=== PATIENT | male | born 1950 | race Caucasian/White ===

== ENCOUNTER 2020-10-01 | Outpatient (CLI) | payer MEDICARE, OTHER | END 2020-10-01 21:52 | disposition EMS.NT | DX: R41.82 Altered mental status, unspecified (principal) ==

== ENCOUNTER 2022-05-17 08:00 | Outpatient (CLI) | payer MEDICARE, OTHER ==
--- NOTE | 2022-05-17 12:46 | XRAY Report ---
PROCEDURE: Hand 3 View RT INDICATIONS: RIGHT 5TH MC FX TECHNIQUE: 3 views of the hand(s) acquired. COMPARISON: 05/10/2022 FINDINGS: Bones: Evaluation is limited by positioning. Moderately displaced fifth metacarpal shaft fracture is similar to prior. No significant callus formation or reduction is apparent. Advanced degenerative changes of the proximal thumb and STT joint, partially seen. Soft tissues: No suspicious soft tissue calcifications. IMPRESSION: Compared to 05/10/2022, similar appearance of fifth metacarpal moderately displaced shaft fracture. Reviewed by: Romeo Singleton MD on 05/17/2022 12:44 PM PDT Approved by: Romeo Singleton MD on 05/17/2022 12:44 PM PDT Station ID: [id number]
== END 2022-05-17 23:59 | disposition home or self-care (01) ==
LOC: DI.WOS 08:00
PROVIDERS: ATTEND Orthopaedic Surgery
DX: S62.326A Displaced fracture of shaft of fifth metacarpal bone, right hand, initial encounter for closed fracture (principal); M19.041 Primary osteoarthritis, right hand

== ENCOUNTER 2022-05-20 11:22 | Day surgery (SDC) | payer MEDICARE, OTHER ==
[2022-05-20] MEDS ORDERED: LACTATED RINGERS 1,000 ML IV ONE ×2 (11:25→14:22)
[2022-05-20] MEDS ORDERED: CELECOXIB 100 MG CAPSULE PO ONE (11:31)
[2022-05-20] MEDS ORDERED: CEFAZOLIN 2G/50ML 0.9% NS 2 GM/50 ML BAG IV ONE (11:31)
[2022-05-20] MEDS ORDERED: ACETAMINOPHEN 500 MG TABLET PO ONE (11:31)
--- NOTE | 2022-05-20 11:54 | ANESTHESIA ---
Pre-Anesthesia VS, & Labs - Diagnosis displaced fracture 5th metacarpal - Procedure perc pinning 5th metacarpal R Vital Signs: Temp Pulse Resp BP Pulse Ox O2 Flow Rate 36.3 C L 87 16 132/78 H 100 05/20/22 11:25 05/20/22 11:25 05/20/22 11:25 05/20/22 11:25 05/20/22 11:25 Height: 5 ft 10 in Weight (kg): 71 kg Body Mass Index: 22.4 BMI Classification: Normal - NPO >8 hours Home Medications and Allergies Aspirin [Aspir-Low] 81 mg PO DAILY 01/12/14 Atorvastatin Calcium [Lipitor] 40 mg PO DAILY 01/12/14 Esomeprazole Magnesium [Nexium] 40 mg PO DAILY 01/12/14 Insulin Glargine,Hum.rec.anlog [Lantus] 35 units SUBQ DAILY 01/12/14 Lisinopril 20 mg PO DAILY 01/12/14 metFORMIN [Glucophage] 1,000 mg PO BID 01/12/14 Insulin Lispro [Humalog Kwikpen U-100] 6 - 20 unit SUBQ TIDWM 02/15/18 Vitamin B Complex 1 each PO DAILY 02/27/20 Allergies/Adverse Reactions: Allergies Allergy/AdvReac Type Severity Reaction Status Date / Time No Known Drug Allergies Allergy Verified 05/20/22 11:44 Anes History & Medical History - Anesthetic History Anesthesia Complications: reports: No previous complications Family history of Anesthesia Complications: Denies Family history of Malignant Hyperthermia: Denies - Medical History Cardiovascular: reports: Hypertension, High cholesterol Pulmonary: reports: None Gastrointestinal: reports: None Urinary: reports: None Musculoskeletal: reports: None Endocrine/Autoimmune: reports: Type 2 diabetes Skin: reports: None Smoking Status: Former smoker - Surgical History Orthopedic: reports: Other Exam General: Alert, Oriented x3, Cooperative Dental: WNL Mouth Openin Fingerbreadth Neck Mobility: Normal Mallampati classification: I Thyromental Distance: 4-6 cm Respiratory: Lungs clear Cardiovascular: Regular rate Plan Anesthesia Type: General, Total IV Consent for Procedure(s) Verified and Reviewed: Yes Code Status: Attempt Resuscitation ASA classification: 2-Mild systemic disease Is this case an emergency?: No
[2022-05-20] MEDS ORDERED: BUPIVACAINE 0.25% PF 10 ML VIAL ONE (12:10)
[2022-05-20] MEDS ORDERED: LIDOCAINE MPF 2%-EPI 1:200000 20 ML VIAL ONE (12:10)
[2022-05-20] MEDS ORDERED: MIDAZOLAM 2 MG/2 ML VIAL ONE (12:31)
[2022-05-20] MEDS ORDERED: LIDOCAINE-MPF 2% 5 ML VIAL ONE (12:31)
[2022-05-20] MEDS ORDERED: PROPOFOL 200 MG/20 ML VIAL IVP ONE ×2 (12:31→13:20)
[2022-05-20] MEDS ORDERED: fentaNYL 100 MCG/2 ML VIAL ONE (12:32)
[2022-05-20] MEDS ORDERED: LIDOCAINE 1% 50 ML MDV ONE (13:12)
[2022-05-20] MEDS ORDERED: LIDOCAINE 1% 50 ML MDV SUBQ ONE ×2 (13:18)
[2022-05-20] MEDS ORDERED: oxyCODONE 5 MG TABLET PO PRN (13:35)
--- NOTE | 2022-05-20 13:41 | OPERATIVE REPORT ---
Operative Report - General Procedure Date: 05/20/22 Planned Procedure: Closed reduction percutaneous pinning right fifth metacarpal fracture Pre-Op Diagnosis: Displaced right fifth metacarpal fracture Procedure Performed: Closed reduction right fifth metacarpal fracture with percutaneous 0.062 inch K wire fixation Post Op Diagnosis: Same as preoperative diagnosis - Procedure Note Primary Surgeon: Av Francis MD Secondary Surgeon: Fiona CALLES Anesthesia Provider: Cindy Petty CRNA Anesthesia Technique: MAC Estimated Blood Loss (mL): 1 Indications: This is a 71-year-old man who injured his right fifth metacarpal turning and striking it hard against the counter. He had a direct blow to the ulnar border of the right hand leading to a displaced right fifth metacarpal fracture which occurred over 10 days ago. He had some tenderness over the right fifth metacarpal with minimal deformity. X-ray showed a long oblique fracture of the fifth metacarpal shaft with shortening and widening at the fracture site. He was in agreement to close reduction and percutaneous pinning of the right fifth metacarpal. He specifically did not wish to have open reduction with plate and screw fixation. He does have a history of diabetes mellitus. His dominant hand is his right. He did sign informed consent at the office agreeing to the procedure as an outpatient at [facility]. Findings: Displaced right fifth metacarpal shaft fracture, closed. Fracture alignment was as described preoperatively with shortening and widening at the fracture site. Complications: None - Other Other Information/Narrative: The patient was brought to the operating room placed in the supine position with the right arm over a arm radiolucent extension table. The right upper extremity was prepped and draped in sterile manner usual fashion. The anesthesia provided was moderate sedation supplemented by local infiltration at the surgical site by the surgeon using a total of 10 cc of 1% plain Xylocaine. A timeout procedure was performed by the entire operating room team And all present were in agreement. A mini C arm was available and covered with a sterile drape. Sterile fingertrap traction to the fifth finger was utilized and performed by physician special event assistant. Percutaneous pinning was then performed with a mini ambulette driver, 0.062 inch K wires. The K wires were placed parallel to each other, crossing the fracture site which was partially reduced with traction and a towel clamp to compress the bone surfaces together. The K wires were placed into the fourth metacarpal for additional stability. A total of 2 K wires were utilized.There was no deformity to the fifth finger. The K wires were cut external to the skin and A sterile balls. A padded short arm volar wrist splint was applied. He did receive 2 g of Ancef. He tolerated procedure wellA physician special event assistant was medically necessary to help with prepping and draping, positioning, protection of vital structures, assistance during the procedure including wound closure, dressing and/or splinting.
[2022-05-20 13:54] VITALS: BP 110/76
[2022-05-20] MEDS ORDERED: ACETAMINOPHEN 500 MG TABLET PO SCH (14:00)
[2022-05-20] MEDS ORDERED: IBUPROFEN 600 MG TABLET PO SCH (14:00)
--- NOTE | 2022-05-20 14:55 | ANESTHESIA POST OP EVALUATION ---
Anesthesia Post Eval - Post Anesthesia Eval Vitals: Last Vital Signs Temp 36.2 C L 05/20/22 13:53 Pulse 65 05/20/22 13:53 Resp 16 05/20/22 13:53 BP 110/76 05/20/22 13:53 Pulse Ox 100 05/20/22 13:53 O2 Flow Rate CV Function Including HR & BP: Stable Pain Control: Satisfactory Nausea & Vomiting: Negative Mental Status: Baseline Respiratory Status: Airway Patent Hydration Status: Satisfactory Anesthesia Complications: None
== END 2022-05-20 11:23 | disposition home or self-care (01) ==
LOC: SDS 11:22
PROVIDERS: ATTEND Orthopaedic Surgery
DX: S62.326A Displaced fracture of shaft of fifth metacarpal bone, right hand, initial encounter for closed fracture (principal); W22.09XA Striking against other stationary object, initial encounter; I10 Essential (primary) hypertension; E11.9 Type 2 diabetes mellitus without complications; Z79.4 Long term (current) use of insulin; Z79.84 Long term (current) use of oral hypoglycemic drugs
CPT/HCPCS: 26608; A9270; J0690; J7120

== ENCOUNTER 2022-06-22 08:00 | Outpatient (CLI) | payer MEDICARE, OTHER ==
--- NOTE | 2022-06-22 16:34 | XRAY Report ---
PROCEDURE: Hand 3 View RT INDICATIONS: RIGHT HAND FRACTURE TECHNIQUE: 3 views of the hand(s) acquired. COMPARISON: Right hand radiographs 05/17/2022 FINDINGS: Bones: Redemonstrated oblique fracture of the fifth metacarpal middistal diaphysis. Alignment of the fracture appears mildly improved compared to the most recent exam, now mildly displaced, approximatel y one quarter shaft width radial displacement of the distal fragment. There may be minimal bony callu s adjacent to the fracture. Tracks likely from prior fixation hardware are present within the third, fourth, fifth metacarpals. Polyarticular degenerative changes redemonstrated most severe at the STT a nd first CMC joints. Soft tissues: No suspicious soft tissue calcifications. IMPRESSION: Interval removal of fixation hardware at the fifth metacarpal fracture. Fracture alignment appears mi ldly improved. Possible early callus present adjacent to the fracture site. Reviewed by: Basil Lamas MD on 06/22/2022 4:32 PM PDT Approved by: Basil Lamas MD on 06/22/2022 4:32 PM PDT Station ID: [id number]
== END 2022-06-22 23:59 | disposition home or self-care (01) ==
LOC: DI.WOS 08:00
PROVIDERS: ATTEND Orthopaedic Surgery
DX: S62.326D Displaced fracture of shaft of fifth metacarpal bone, right hand, subsequent encounter for fracture with routine healing (principal)

== ENCOUNTER 2022-07-20 14:56 | Outpatient (CLI) | payer MEDICARE, OTHER ==
--- NOTE | 2022-07-20 12:16 | XRAY Report ---
PROCEDURE: Hand 3 View RT INDICATIONS: RIGHT HAND FRACTURE TECHNIQUE: 3 views of the hand(s) acquired. COMPARISON: X-ray right hand, 06/22/2022, 05/17/2022 and 05/10/2022. FINDINGS: Bones: There is a mildly displaced oblique fracture of the fifth metacarpal shaft. The alignment is s table. Severe degenerative joint disease at the triscaphe joint, and moderate degenerative joint dise ase at the first carpal metacarpal joint, first metacarpal phalangeal joint, and mild degenerative tamara int disease in multiple phalangeal joints. No suspicious bony lesions. Soft tissues: No suspicious soft tissue calcifications. IMPRESSION: 1. Stable alignment of mildly displaced oblique fracture of the fifth metacarpal. Reviewed by: Jodi Devries MD on 07/20/2022 12:15 PM PST Approved by: Jodi Devries MD on 07/20/2022 12:15 PM PST Station ID: [id number]
== END 2022-07-20 14:57 | disposition home or self-care (01) ==
LOC: DI.WOS 14:56
PROVIDERS: ATTEND Orthopaedic Surgery
DX: S62.396D Other fracture of fifth metacarpal bone, right hand, subsequent encounter for fracture with routine healing (principal)